=== PATIENT | female | born 1995 | race Caucasian/White ===

== ENCOUNTER 2017-03-26 17:54 | Emergency (ER) | payer SELFPAY ==
[~2017-03-26] VITALS: Ht 170.2 cm; Wt 65.8 kg
[2017-03-26 18:28] VITALS: BP_SYST 125
--- NOTE | 2017-03-26 18:50 | NUR ---
Patient to ER bed 8, to await evaluation by ER MD.
--- NOTE | 2017-03-26 19:00 | NUR ---
Patient to ER via triage with c/o anxiety x 2 days, patient reports having to take a deep breath for her to get relief of symptoms. Patient is awake, alert and oriented in no acute distress. Patient resting quietly in position of comfort, awaiting evaluation by ER MD. Will continue to observe and assess. Patient denies CP/Pressure at present.
--- NOTE | 2017-03-26 19:45 | NUR ---
Lucia INFANTRY ASSAULTMAN at bedside to evaluate patient.
[2017-03-26 20:02] LABS: BASOPHILS % (AUTO) 0.8 % (0.0-2.0); EOSINOPHILS # (AUTO) 0.2 K/uL (0.0-0.4); EOSINOPHILS % (AUTO) 3.3 % (0.0-4.0); HEMATOCRIT 42.1 % (36-48); HEMOGLOBIN 14.3 g/dL (12.0-16.0); LYMPHOCYTES # (AUTO) 1.3 K/uL (1.0-5.5); LYMPHOCYTES % (AUTO) 26.8 % (20.5-51.5); MEAN CORPUSCULAR HEMOGLOBIN 31 pg (27-31); MEAN CORPUSCULAR HGB CONC 34 % (32-36); MEAN CORPUSCULAR VOLUME 90 fL (79.0-98.0); MONOCYTES # (AUTO) 0.3 K/uL (0.0-1.0); MONOCYTES % (AUTO) 7.1 % (1.7-9.3); PLATELET COUNT (AUTO) 225 K/uL (130-430); RED BLOOD CELL COUNT(AUTO) 4.68 MIL/uL (4.2-6.2); RED CELL DISTRIBUTION WIDTH 12.2 % (9.0-15.0); WHITE BLOOD COUNT (AUTO) 4.8 K/uL (4.8-10.8)
[2017-03-26 20:11] LABS: CALCIUM 9.8 mg/dL (8.4-11.0); CREATININE 0.79 mg/dL (0.55-1.30); POTASSIUM 3.5 mmol/L (3.5-5.1)
--- NOTE | 2017-03-26 20:15 | NUR ---
Report to Jessica for continued care.
[2017-03-26 20:17] LABS: ALBUMIN 3.9 g/dL (3.4-4.8); TOTAL BILIRUBIN 0.5 mg/dL (0.0-1.0)
--- NOTE | 2017-03-26 20:57 | NUR ---
Patient given written and verbal discharge instructions and verbalizes understanding. FIDENCIO Myers TURRET PRESS OPERATOR discussed with patient the results and treatment provided. Patient in stable condition. ID arm band removed. Rx of Ativan given. Patient educated on pain management and to follow up with PMD. Pain Scale 0. Opportunity for questions provided and answered.
[2017-03-26 21:27] VITALS: BP_SYST 121
== END 2017-03-26 21:27 | disposition home or self-care (01) ==
LOC: SED 17:54
DX: F41.9 Anxiety disorder, unspecified (principal); R03.0 Elevated blood-pressure reading, without diagnosis of hypertension
CPT/HCPCS: 36415; 80053; 85025; 93005; 99285